=== PATIENT | male | born 1975 | race Two or more races ===

== ENCOUNTER 2018-06-23 09:30 | Emergency (ER) | payer MEDICAID ==
[~2018-06-23] VITALS: Ht 180.3 cm; Wt 81.6 kg
--- NOTE | 2018-06-23 09:33 | NUR ---
CAME IN FOR DIZZINESS S/P SEIZURE 1 HOUR AGO. RAN OUT OF [facility] 2 DAYS AGO. TO ER BED 1, HOOKED TO MONITOR, CHANGED TO GOWN, PROVIDED W WARM BLANKET, AWAITING MD BANGURA. SEIZURE PRECAUTIONS APPLIED
[2018-06-23 09:58] LABS: BASOPHILS % (AUTO) 0.9 % (0.0-2.0); EOSINOPHILS % (AUTO) 4.6 % (0.0-6.0); HEMATOCRIT 41 % (39-51); HEMOGLOBIN 13.4 g/dL (13.5-17.5); LYMPHOCYTES # (AUTO) 1.3 /CMM (0.8-4.8); LYMPHOCYTES % (AUTO) 25.6 % (20.0-44.0); MEAN CORPUSCULAR HGB CONC 32 g/dl (31.0-36.0); MEAN CORPUSCULAR VOLUME 74 fL (80-96); MONOCYTES # (AUTO) 0.4 /CMM (0.1-1.30); MONOCYTES % (AUTO) 8.3 % (2.0-12.0); NEUTROPHILS % (AUTO) 60.6 % (43.0-81.0); PLATELET COUNT (AUTO) 262 /CMM (150-450); RED BLOOD CELL COUNT(AUTO) 5.58 MIL/uL (4.5-6.0)
[2018-06-23] MEDS ORDERED: LEVETIRACETAM (500MG) 500 MG in IV NS 0.9% 100 ML IV ONE (10:00)
[2018-06-23 10:05] LABS: CALCIUM, SERUM 8.4 mg/dL (8.5-10.1); POTASSIUM 3.9 mmol/L (3.5-5.1)
--- NOTE | 2018-06-23 10:50 | NUR ---
IV removed. Catheter intact and site benign. Pressure and 4x4 applied to site. No bleeding noted.Patient discharged to home in stable condition. Written and verbal after care instructions given. Patient verbalizes understanding of instruction.
[2018-06-23] MEDS ORDERED: LEVE500T20 PO (10:53)
[2018-06-23 10:54] VITALS: BP 116/80
== END 2018-06-23 10:55 | disposition home or self-care (01) ==
LOC: ER 09:32
DX: R56.9 Unspecified convulsions (principal); Z79.899 Other long term (current) drug therapy
CPT/HCPCS: 36415; 80048; 85025; 96365; 99283; J1953; J7030